=== PATIENT | male | born 1985 | race Caucasian/White ===

== ENCOUNTER 2024-05-23 22:02 | Emergency (ER) | payer BC, SELFPAY ==
[2024-05-23 22:10] VITALS: BP 139/85; PULSE 73; RESP 16; TEMP 36.4; O2SAT 95; BMI 33.2
--- NOTE | 2024-05-23 22:18 | ED_ITS ---
HPI - General Adult General Time Seen by Provider: 22:18 Date Seen: 05/23/24 Chief complaint: Lower Extremity Swelling Stated complaint: Right leg pain Time Seen by Provider: 05/23/24 22:18 Source: patient and RN notes reviewed Mode of arrival: ambulatory Limitations: no limitations History of Present Illness HPI narrative: This 38-year-old male is coming in with concern of possible DVT in his right lower leg. He noticed a little discoloration behind his right ankle, started to think that he really has been having some calf discomfort. He sometimes will have some swelling in the leg. This right knee has had surgery twice, he is had meniscal repair remotely and then about a year ago at [facility]. He denies any chest pain, no shortness of breath, no difficulty breathing. His dad has had a DVT before but Lex has never been diagnosed with any blood clots. He has had no fevers or chills, no trauma acutely to this leg. He asked if some a of these blood clots can be hereditary. Did review with him that certainly there are some hereditary conditions, 1 is factor 5 Leiden which is a bit more common in the population. He notes that his actually has that, had blood clots in . 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 I do see that patient is on lisinopril-hydrochlorothiazide. Related Data Home Medications ?Medication ?Instructions ?Recorded ?Confirmed lisinopril 20 1 tab PO QDAY 07/10/22 05/23/24 mg-hydrochlorothiazide 12.5 mg tablet Allergies Allergy/AdvReac Type Severity Reaction Status Date / Time cefaclor [From Ceclor] Allergy Mild Hives Verified 03/01/23 13:35 Review of Systems Status of ROS: Reports: 6 or more systems reviewed and unremarkable except as noted in History and below [facility] Medical History (Updated 05/23/24 @ 23:33 by Irlanda Yarbrough MD) Right knee pain ?M25.561 - Pain in right knee (ICD-10) Social History Smoking Status: Never smoker Non-prescribed substance use: denies use Exam Const: Vital Signs, click to edit/add: Vital Signs - 24 hr 05/23/24 22:10 Temperature 97.6 F Pulse Rate [Pulse Oximeter] 73 Respiratory Rate 16 Blood Pressure [Ri ght Upper Arm] 139/85 Pulse Oximetry 95 Oxygen Delivery Me thod Room Air Tavon is a 38-year-old male that is alert, interactive, no apparent distress. Able to speak in complete sentences. Sclera clear. Lungs clear, no tachypnea. CV regular rate and rhythm no murmur noted. Both of his lower extremities are inspected. He does have a little filling behind his right lateral malleolus and would almost looks to be hemosiderin staining. I do see a few small spots of erythematous changes that are almost looking like minute petechial changes over the anterior right lower leg. He does also have some freckling that is faint but noted in the legs. There is no really reproducible pretibial edema on the right leg. Calf size seems to be symmetric and normal. Neurovascular is intact, good pulses, skin is warm and dry. Documenting provider has reviewed patient's vital signs: yes Course Course ED Course: I do not see extensive changes that make me concerned for DVT but admittedly have seen patients not have much in way of clinical features and have been diagnosed with DVT. Patient is concerned and thus do feel compelled given his family history with his father to check venous ultrasound to rule out DVT. We did discuss that patients with age as well as prior surgeries in the extremities can be a risk for edema. Patient had read about venous insufficiency. We will look at an ultrasound and guide therapy accordingly. Reevaluation(s) Time of Reevaluation #1: 23:22 Reevaluation #1: Reviewed with patient that the preliminary report per the kindergarten instructional assistant is negative for DVT. We will discharge him to home. I will let him know if there are any other incidental findings once the imaging has been read by Radiology. He understands that this may not be immediately this week as I do not work again until next week. He certainly does not have a DVT. We did discuss other risk factors for development of venous insufficiency, reviewed that this is a different ultrasound test that is not done through the ER and can be considered if there is further concerns with edema. Vital Signs Vital signs: Initial Vital Signs Temperature 97.6 F 05/23/24 22:10 Temperature Source Temporal Artery Scan 05/23/24 22:10 Pulse Rate 73 10/04/24 22:10 Respiratory Rate 16 05/23/24 22:10 Blood Pressure 139/85 05/23/24 22:10 Blood Pressure Mean 103 05/23/24 22:10 Blood Pressure Position Sitting 05/23/24 22:10 Pulse Oximetry 95 05/23/24 22:10 Oxygen Delivery Method Room Air 05/23/24 22:10 Vital Signs Temperature 97.6 F 05/23/24 22:10 Pulse Rate 73 05/23/24 22:10 Respiratory Rate 16 05/23/24 22:10 Blood Pressure 139/85 05/23/24 22:10 Pulse Oximetry 95 05/23/24 22:10 Oxygen Delivery Method Room Air 05/23/24 22:10 Temperature 97.6 F 05/23/24 22:10 Pulse Rate 73 05/23/24 22:10 Respiratory Rate 16 05/23/24 22:10 Blood Pressure 139/85 05/23/24 22:10 Pulse Oximetry 95 05/23/24 22:10 Oxygen Delivery Method Room Air 05/23/24 22:10 Medical Decision Making Imaging Data Venous US: Attestation: I have reviewed the pertinent imaging results. Radiologist's impression: Patient: LEX KARIMI Facility:?[facility] Patient ID:?[id number] Site Patient ID:?[id number]. Site :?[id number] Study:?US-Extremity Right venous-05/23/2024 11:30:25 PM Ordering Physician:Gaurang Fournier Final Report: INDICATION: Leg pain. TECHNIQUE: Ultrasound venous duplex lower right extremity. Compression venous exam was performed using cantor-scale, color Doppler, and spectral Doppler analysis. COMPARISON: None. FINDINGS: Deep veins: Sonographic imaging demonstrates the right common femoral, deep femoral, superficial femoral, popliteal, posterior tibial, peroneal and the contralateral left common femoral veins to be fully compressible with normal color Doppler blood flow. Superficial veins: Greater saphenous vein is fully compressible. No popliteal cyst. IMPRESSION: No deep venous thrombosis in the evaluated veins of the right lower extremity. Dictated by Andre Londono MD @ 05/24/2024 12:36:27 AM (Electronic Signature) Discharge Plan Discharge Clinical Impression: Pain and swelling of lower extremity Qualifiers: Laterality: right Qualified Code(s): M79.604 - Pain in right leg Patient Disposition: Home, Self-Care Condition: Stable Instructions: Leg Edema (ED) Additional Instructions: Overall, your swelling in your right lower leg is clinically minimal at this time. I do recommend that you follow-up with your primary care provider to review further workup of edema including venous insufficiency if you have ongoing symptoms. Elevating your legs when resting is a simple things that can be done. Minimizing sodium intake could be considered as well. There was no evidence of DVT or blood clot on the ultrasound tonight thankfully. Activity Level: Activity as Tolerated Prescriptions: No Action lisinopril-hydrochlorothiazide 20-12.5 mg tablet 1 tab PO QDAY Patient Comments: TAKE 1 TABLET BY MOUTH EVERY DAY Follow Up/Referrals: Provider,Not a Local [Primary Care Provider] - Stand Alone Forms: [employer] Info Instructions
--- NOTE | 2024-05-23 22:21 | CRLHL7_ITS ---
For Patients: As a result of the Century Cures Act, medical imaging exams and procedure reports are released immediately into your electronic medical record. You may view this report before your referring provider. If you have questions, please contact your health care provider. INDICATION: Leg pain. TECHNIQUE: Ultrasound venous duplex lower right extremity. Compression venous exam was performed using cantor-scale, color Doppler, and spectral Doppler analysis. COMPARISON: None. FINDINGS: Deep veins: Sonographic imaging demonstrates the right common femoral, deep femoral, superficial femoral, popliteal, posterior tibial, peroneal and the contralateral left common femoral veins to be fully compressible with normal color Doppler blood flow. Superficial veins: Greater saphenous vein is fully compressible. No popliteal cyst. IMPRESSION: No deep venous thrombosis in the evaluated veins of the right lower extremity. Dictated by Andre oLndono MD @ 05/24/2024 12:36:27 AM (Electronically Signed)
--- OUTSIDE RECORDS SUMMARY | 2024-05-23 23:37 | XMS_ITS | Continuity of Care Document ---
Author Organization [facility] Address [address] [address] [place] [address] Phone Care Team Providers Care Manager Acute Name Role Phone Tom Florentino MD, Jay Unavailable Unavailabl e Allergies, Adverse Reactions, Alerts Substance Reaction Status Criticality cefaclor HivesHives Active No Information Medications Medication Instructions Dosage Effective Dates (start - stop) Status Comments lisinopril 20 mg-hydrochlorothiaz scottie 12.5 mg tablet take 1 tablet by oral route every day 1.00 tablet - Active Procedures Procedure Date FibroScan Offic/outpt E&m New Mod-hi Routine Serum Collection Advance Directives Directive Yes / No Effective Date File Name No Information Encounters Encounter Description Practice Location Reason(s) For Visit Diagnoses Date Provider Providers Copied on Encounter [facility], [address] [address], [place], [place], [id number], [place] tel:[phone] [facility] No Information 4 Tom Thompson. [address] [facility], [facility] [address], [place], [place], [address], [place]. tel:[phone] [facility], [address] [address], [place], [place], [id number], [place] tel:[phone] [facility] Fatty (change of) liver, not elsewhere classified 2 Gerard Flores. [address] [facility], [facility] [address], [place], [place], [id number], [place]. tel:[phone] Marquita Clarke MD. tel:[phone] erring Provider: Referral Self, USE FOR SELF REFERRALS. Offic/outpt E&m New Mod-hi [facility], [address] [address], [place], [place], [id number], [place] tel:[phone] [facility] GI Symptoms or Concerns (chief complaint) Elevated liver function testsFatty liverLow ceruloplasmin level 2 Gerard RUTHY Sandra. [address] [facility], [place], [place], [address], [place]. tel:[phone] Referring Provider: Marquita Clarke MD, [address] [place] [address], [address]. tel:[phone] [facility], [address] [address], [place], [place], [id number], [place] tel:[phone] [facility] No Information 2 Tom Thompson. [address] [facility], [address], [place], [place], [address], [place]. tel:[phone] Family History Family Member Type Diagnosis Age At Onset Sister Problem Alive and well Son Problem Alive and well Mother Problem Diverticular disease Father Problem History Of Heart Problems Daughter Problem Alive and well Immunizations Vaccine Date Status Comments SARS-COV-2 (COVID-19) vaccin e, mRNA, spike protein, LNP, preservative free, 100 mcg/0.5mL dose or 50 mcg/0.25mL dose administered Note: [facility] bi -directional interface ; Source: Other Registry Influenza administered Note: [employer] bi-d irectional interface ; Source: Other Registry SARS-COV-2 (COVID-19) vaccin e, mRNA, spike protein, LNP, preservative free, 100 mcg/0.5mL dose or 50 mcg/0.25mL dose administered Note: [employer] bi -directional interface ; Source: Other Registry SARS-COV-2 (COVID-19) vaccin e, mRNA, spike protein, LNP, preservative free, 100 mcg/0.5mL dose or 50 mcg/0.25mL dose administered Note: [facility] bi -directional interface ; Source: Other Registry Influenza administered Note: [facility] bi-d irectional interface ; Source: Other Registry Afluria Qd administered Note: M [facility]IC bi-directional interface ; Source: Other Registry Influenza administered Note: [facility] bi-d irectional interface ; Source: Other Registry Influenza administered Note: [facility] bi-d irectional interface ; Source: Other Registry Afluria Qd administered Note: M [facility] bi-directional interface ; Source: Other Registry tetanus toxoid, reduced diphtheria toxoid, and acellular pertussis vaccine, adsorbed administered Note: [facility] b i-directional interface ; Source: Other Registry Afluria Qd administered Note: M [facility] bi-directional interface ; Source: Other Registry Influenza administered Note: [facility] bi-d irectional interface ; Source: Other Registry Afluria Qd administered Note: M [facility] bi-directional interface ; Source: Other Registry tetanus toxoid, reduced diphtheria toxoid, and acellular pertussis vaccine, adsorbed administered Note: [facility] b i-directional interface ; Source: Other Registry Payers Payer name Insurance type Covered republican ID Authoriza tion(s) No Information Social History Type Description Quantity Date Captured Comments Sex Male Smoking Status No Information Chief Complaint And Reason For Visit No Information Reason For Referral Reason For Referral No Information Plan Of Treatment Date Type Action Status Referral Ordered: FibroScan With CAP Appointment date/timeframe: 02/17/2022 ordered History Of Present Illness Encounter Date Complaint History Of Prese nt Illness GI Symptoms or Concerns Severiano payne is a 36-year-old male who presents to clinic for consultation at the request of his primary care physician, Dr. Marquita Clarke, regarding elevated liver function testing.In January, he was found to have total bilirubin of 3.0 with direct of 0.8. Alkaline phosphatase is 48, ALT of 132, AST of 52. Testing for hepatitis B and C was negative. He is not immune to hepatitis B. Celiac and thyroid testing was negative as well. Iron was negative. He was found to have mildly elevated ferritin level of 335. Smooth muscle antibody and MEGAN were both negative. He did have mildly low ceruloplasmin at 18.2. He has not had any recent imaging of his liver, but reports that when he had a cholecystectomy in 2014, he was told that he had fatty liver disease.The patient is obese with BMI of 32.5. He drinks approximately 2 beers per week and does not have a history of excess alcohol use. There is no known family history of liver disease. The patient also suffers from hypertension as Functional Status Date Functional Assessmen t No Information Instructions Date Instruction Additional Infor keri fatty liver diet Related to Elev ated liver function tests Assessments Type Assessment Date No Information Patient Care Teams Name Effective Dates (start - stop) Status Members No Information
--- OUTSIDE RECORDS SUMMARY | 2024-05-23 23:37 | XMS_ITS | Continuity of Care Document ---
Author Organization [facility] Address [address] [address] [place] [address] Phone Care Team Providers Care Note Keeper Name Role Phone Tom Florentino MD, Jay [...] Diagnoses Date Provider Providers Copied on Encounter [facility], [address] [address], [place], [place], [id number], [place] tel:[phone] [facility] No Information 4 Tom Thompson. [address] [facility] [facility] [address], [place], [place], [id number], [place]. tel:[phone] [facility], [address] [address], [place], [place], [address], [place] tel:[phone] [facility] Fatty (change of) liver, not elsewhere classified 2 Gerard Flores. [address] [facility], [facility] [address], [place], [place], [address], [place]. tel:[phone] Marquita Clarke MD. tel:[phone] erring Provider: Referral Self, USE FOR SELF REFERRALS. Offic/outpt E&m New Mod-hi [facility], [address] [address], [place], [place], [id number], [place] tel:[phone] [facility] GI Symptoms or Concerns (chief complaint) Elevated liver function testsFatty liverLow ceruloplasmin level 2 Gerard RUTHY Sandra. [address] [facility], [place], [place], [address], [place]. tel:[phone] Referring Provider: Marquita Clarke MD, [address] [place] [address], [address]. tel:[phone] [facility], [address] [address], [place], [place], [id number], [place] tel:[phone] [facility] No Information 2 Tom Thompson. [address] [facility], [place], [place], [address], [place]. tel:[phone] Family History Family Member Type Diagnosis Age [...] ; Source: Other Registry Influenza administered Note: [employer] bi-d irectional interface ; Source: Other Registry SARS-COV-2 (COVID-19) vaccin e, mRNA, spike protein, LNP, preservative free, 100 mcg/0.5mL dose or 50 mcg/0.25mL dose administered Note: [employer] bi -directional interface ; Source: Other Registry [...] Registry Payers Payer name Insurance type Covered green party ID Authoriza tion(s) No Information Social History [...]
--- OUTSIDE RECORDS SUMMARY | 2024-05-23 23:37 | XMS_ITS | Clinical Summary ---
Author Organization [facility] Address [place], [place] [address] Care Team Providers Care Punching Machine Operator Name Role Phone Marquita Clarke MD Primary Care Provider [phone] Allergies Active Allergy Reactions Criticality Noted Date Comments Cefaclor Hives 09/25/2012 Medications Medication Sig Dispensed Refills Start Date End Date Status lisinopril-hydrochloro thiazide 20-12.5 mg tablet (PRINZIDE)Indications: Essential hypertension Take 1 Tablet by mouth once daily. 90 Tablet 3 02/01/2024 Active Active Problems Problem Noted Date Diagnosed Date Low ceruloplasmin level 12/21/2022 Family history of early CAD 11/15/2021 Hypertriglyceridemia 11/15/2021 Elevated ferritin 11/15/2021 Elevated hemoglobin 11/15/2021 Elevated bilirubin 11/15/2021 Elevated LFTs 11/15/2021 Migraine with aura, not intr actable, without status migrainosus 09/08/2020 Essential hypertension 08/31/2020 BISHNU (generalized anxiety disorder) 11/22/2018 History of gastroesophageal reflux (GERD) 2018 FH: heart attack 08/19/2018 Obesity (BMI 30.0-34.9) 04/14/2016 Tonsil stone 04/14/2016 Overview (04/14/2016): Recurrent Resolved Problems Problem Noted Date Diagnosed Date Resolved Date Elevated transaminase level 01/27/2019 10/16/2019 Encounter for screening for cardiovascular disorders 06/19/2010 10/16/2019 Immunizations Name Administration Dates Next Due AMB Influenza, IIV4 PF (=>6 mos Flulaval,Fluzone Fluarix)(Flu Clinic Only) 06/13/2019 COVID-19 vaccine (Moderna 100mcg/0.5mL) PF, MDV 06/11/2021,11/10/2020,10/13/2020 Influenza, IIV4 06/16/2022, 0,05/20/2018,07/21/20 17,05/21/2014 Influenza, IIV4 (=>6mos) MDV 05/24/2021,05/13/20 15 Influenza,CCIIV4 PRESERV FREE 05/25/2023 Tdap 07/21/2017,06/28/2012 Family History Medical History Relation Name Comments Anxiety disorder Father Depression Father Diabetes Father Heart Disease Father [place], HTN, Diabe dmitri, Depression Good Health Mother Good Health Sister 3 Good Health Sister 4 Relation Name Status Comments Father Alive Mother Alive Sister 1 Alive Sister 2 Alive Sister 3 Sister 4 Social History Tobacco Use Types Packs/Day Years Used Date Smoking Tobacco: Never Smokeless Tobacco: Never Tobacco Cessation:Counseling Given: No Alcohol Use Standard Drinks/Week Comments Yes 0 (1 standard drink = 0.6 oz pur e alcohol) 1-2 beers a week PHQ-2 Answer Date Recorded PHQ-2 TOTAL SCORE 2 02/01/2024 Social Connections Answer Date Recorded Frequency of Communication with Friends and Fami ly 0 11/23/2023 Financial Resource Strain Answer Date R ecorded Difficulty of Paying Living Expenses 3 11/23/2023 Difficulty of Paying Living Expenses Not on file 11/23/2023 Food Insecurity Answer Date Recorded Worried About Running Out of Food in the Last Ye ar 1 11/23/2023 Transportation Needs Answer Date Record ed Lack of Transportation (Medical) 1 11/23/2023 Housing Stability Answer Date Recorded Unable to Pay for Housing in the Last Year 1 11/23/2023 Sex and Gender Information Value Date Recorded Sex Assigned at Not on file Gender Identity Not on file Sexual Orientation Not on file Obstetrics History Last Filed Vital Signs Vital Sign Reading Time Taken Comments Blood Pressure 114/76 02/01/2024 8:00 AM CDT Pulse 70 02/01/2024 8:00 AM CDT Temperature 36.9 ??C (98.5 ??F) 11/23/2023 2:35 PM CD T Respiratory Rate 12 03/20/2023 10:01 AM CDT Oxygen Saturation 97% 02/01/2024 8:00 AM CDT Inhaled Oxygen Concentration - - Weight 112.5 kg (248 lb) 02/01/2024 8:00 AM CDT Height 184.6 cm (6' 0.68) 02/01/2024 8:00 AM CD T Body Mass Index 33.01 02/01/2024 8:00 AM CDT Plan of Treatment Upcoming Encounters Date Type Department Care Team (Late st Contact Info) Description 06/03/2024 3:00 PM CDT Nutrition/Dietic [facility] [address] [place] [address] [place] [address] Health Maintenance Due Date Last Done Comments COVID-19 vaccine series ( season) 2024 05/25/2023, 05/05/2022, 06/11/2021, Additional history exists Influenza for age 9-49 04/20/2024 , 06/16/2022, 05/24/2021, Additional history exists BMI (ht and wt on same day) for age 18+ 01/31/2025 02/01/2024, 03/20/2023, 12/21/2022, Additional history exists Depression screening for age 12+ 01/31/2025 02/01/2024, 12/21/2022, 11/18/2021, Additional history exists Tetanus booster 07/21/2027 07/21/2017, 06/28/2012 Lipids for age 35-44 01/31/2029 02/01/2024, 12/21/2022, 01/27/2022, Additional history exists Tdap Completed 07/21/2017, 06/28/2012 Hepatitis C screening for age 18-79 Completed 11/15/2021 HIV for age 15-65 Completed 12/21/2022 Pneumococcal series for age 6-64 Aged Out No longer eligible based on patient's age to complete this topic Procedures Procedure Name Priority Date/Time Associated Diagnosis Comments LIPID PANEL W REFLEX MEASURED LDL Routine 02/01/2024 8:46 AM CDT Lipid screening LC HIV-1/O/2, 4TH GENERATION Routine 12/21/2022 5:03 PM CDT Screening for HIV (human immunodeficiency virus) ANTI HCV Add On 11/15/2021 10:29 AM CDT Elevated LFTs from Last 3 Months or Most Recently Relevant to Health Maintenance Results * LIPID PANEL W REFLEX MEASURED LDL (02/01/2024 8:46 AM CDT) CHOLESTEROL,TOTAL 134 100 - 199 mg/dL 02/01/2024 7:23 PM CDT [facility] Comment: Cholesterol, Total Reference Ranges Desirable <200 mg/dL Borderline 200-239 mg/dL High >=240 mg/dL TRIGLYCERIDES 109 <150 mg/dL 02/01/2024 7:23 PM CDT [facility] HDL CHOLESTEROL 46 >40 mg/dL 7:23 PM CDT [facility] NON-HDL CHOLESTEROL 88 <145 mg/dl 02/01/2024 7:23 PM CDT [facility] CHOL/HDL RATIO 2.91 <4.50 02/01/2024 7:23 PM CDT [facility] LDL CHOLESTEROL 66 <=130 mg/dL 02/01/2024 7:23 PM CDT [facility] VLDL CHOLESTEROL 22 <=30 mg/dL 02/01/2024 7:23 PM CDT [facility] PROVIDER ORDERED STATUS RANDOM 02/01/2024 7:23 PM CDT [facility] Blood BLOOD SPECIMEN / Unknown Venipuncture / Unknown 02/01/2024 8:46 AM CDT 02/01/2024 8:46 AM CDT Marquita Clarke MD CHEMISTRY [facility] [address] [place] [address], [place] * LC HIV-1/O/2, 4TH GENERATION (12/21/2022 5:03 PM CDT) Pathologist [facility] HIV Scr 4th Gen Non Reactive Non Reactive 12/26/2022 11:10 AM CDT [facility] ([facility]) Comment: HIV Negative HIV-1/HIV-2 antibodies and HIV-1 p24 antigen were NOT detected. There is no laboratory evidence of HIV infection. Blood BLOOD SPECIMEN / Unknown Venipuncture / Unknown 12/21/2022 5:03 PM CDT 12/21/2022 5:03 PM CDT Narrative [facility] ([facility]) - 12/26/2022 11:10 AM CDT Performed at: ??[address] - [address] ??[id number] Photo Finisher: Kike Martinez MD, Phone: ??[phone] Marquita Clarke MD LABORATORY Performing Organization Address City/[facility]/ZIP Co de Phone Number [facility] ([facility]) [address] [place] [address] * ANTI HCV (11/15/2021 10:29 AM CDT) [facility] HEPATITIS C ANTIBODY Non-React lori Non-React lori 11/16/2021 1:11 PM CDT [facility] Comment:Antibodies to HCV no t detected; does not exclude the possibility of exposure to HCV. Blood BLOOD SPECIMEN / Unknown Venipuncture / Unknown 11/15/2021 10:29 AM CDT 11/15/2021 10:29 AM CDT Marquita Clarke MD SEND OUTS [facility] [address] [place] [address], [place] from Last 3 Months or Most Recently Relevant to Health Maintenance Care Teams Punching Machine Operator Relationship Specialty Start Date End Date Marquita Clarke MD [address] [place] [address] PCP - General Family Practice 11/15/21
== END 2024-05-24 00:24 | disposition home or self-care (01) ==
LOC: ED 23:35
PROVIDERS: Emergency Provider Family Medicine
DX: M79.661 Pain in right lower leg (principal)
CPT/HCPCS: 93971; 99283